=== PATIENT | male | born 1990 | race Caucasian/White ===

== ENCOUNTER 2017-07-01 18:14 | Emergency (ER) | payer SELFPAY ==
[2017-07-01 18:49] VITALS: BMI 23.8
[2017-07-01 18:51] VITALS: BP 126/81; PULSE 107; TEMP 98.6; O2SAT 96
--- NOTE | 2017-07-01 21:26 | C.PDOC ---
History Of Present Illness 26 yr old male presents to the ER with complaints of left lower back pain radiating to the left buttock and thigh area since morning. Patient reports history of similar symptoms, states was seen and evaluated in [place]. Patient denies trauma, abdominal pain, dysuria, hematuria, weakness or numbness. Time Seen by Provider: 07/01/17 20:32 Chief Complaint (Nursing): Back Pain History Per: Patient History/Exam Limitations: no limitations Onset/Duration Of Symptoms: Sudden Onset (since morning) Current Symptoms Are (Timing): Still Present Associated Symptoms: None. denies: Incontinence, New Weakness, New Numbness Past Medical History Reviewed: Historical Data, Nursing Documentation, Vital Signs Vital Signs: Last Vital Signs Temp 98.6 F 07/01/17 18:49 Pulse 107 H 07/01/17 18:49 Resp 20 07/01/17 22:00 BP 126/81 07/01/17 18:49 Pulse Ox 96 07/01/17 22:36 Family History: States: No Known Family Hx - Social History Hx Alcohol Use: No Hx Substance Use: No - Immunization History Hx Tetanus Toxoid Vaccination: No Hx Influenza Vaccination: No Hx Pneumococcal Vaccination: No Review Of Systems Except As Marked, All Systems Reviewed And Found Negative. Gastrointestinal: Negative for: Abdominal Pain Genitourinary: Negative for: Dysuria, Hematuria Musculoskeletal: Positive for: Back Pain (left lower back pain radiating to left buttock and left thigh) Neurological: Negative for: Weakness, Numbness Physical Exam - Physical Exam Appears: Non-toxic, No Acute Distress Skin: Warm, Dry Respiratory: Normal Breath Sounds Gastrointestinal/Abdominal: Normal Exam, Soft, No Tenderness, No Guarding, No Rebound Back: Straight Leg Raising (left leg, 40 degrees), Other (+ paralumbar tenderness) Extremity: Normal ROM, No Calf Tenderness, No Swelling Neurological/Psych: Oriented x3, Normal Speech, Normal Sensation Gait: Other (steady with mild limp) ED Course And Treatment O2 Sat by Pulse Oximetry: 96 (RA) Pulse Ox Interpretation: Normal Progress Note: Patient is treated with Flexeril PO and Toradol IM. On reevaluation, patient is resting comfortably, is no longer having back pain, no fever, no bony tenderness, no numbness, no weakness, or abdominal pain. Patient is ambulatory in the emergency department with no signs of discomfort. Patient was advised to follow up with their physician in 1-2 days. Medical Decision Making Medical Decision Making: PLAN: * Flexeril PO * Toradol IM Disposition Counseled Patient/Family Regarding: Diagnosis, Need For Followup - Disposition Referrals: [facility] [Outside] Disposition: HOME/ ROUTINE Disposition Time: 21:23 Condition: STABLE Additional Instructions: Take meds as directed Follow up in clinic Return to ER if worse Prescriptions: Cyclobenzaprine [Cyclobenzaprine HCl] 10 mg PO BID #10 tab Naproxen [Naprosyn] 1 tab PO BID PRN #20 tab PRN Reason: Pain Instructions: Sciatica (DC) Forms: [employer] (Romanian) - Clinical Impression Clinical Impression: Sciatica - PA / MANAGEMENT CONSULTANT / Resident Statement MD/DO has reviewed & agrees with the documentation as recorded. - Scribe Statement The provider has reviewed the documentation as recorded by the Scribe Paige Haynes All medical record entries made by the Scribe were at my direction and personally dictated by me. I have reviewed the chart and agree that the record accurately reflects my personal performance of the history, physical exam, medical decision making, and the department course for this patient. I have also personally directed, reviewed, and agree with the discharge instructions and disposition.
[2017-07-01 22:01] VITALS: RESP 20
== END 2017-07-01 22:00 | disposition home or self-care (01) ==
LOC: C.ER 18:14
DX: M54.30 Sciatica, unspecified side (principal)
CPT/HCPCS: 96372; 99283; J1885